=== PATIENT | female | born 1935 | race Caucasian/White ===

== ENCOUNTER → 2018-06-17 13:19 | Outpatient (CLI) | payer MEDICARE, BC, SELFPAY ==
--- NOTE | 2018-06-17 13:22 | DI.MRI.S_ITS ---
PROCEDURE: MR LUMBAR SPINE WO CON INDICATIONS: Low back pain. Left leg pain and weakness TECHNIQUE: Noncontrast sagittal T1 spin echo and T2 fast echo, sagittal STIR, axial T1 and T2 fast spin echo through the lumbar spine. In cases with scoliosis, additional coronal T2 fast spin echo may be performed. COMPARISON: None. FINDINGS: Image quality: Excellent. Alignment and Curvature: There is abnormal bony alignment with levoscoliosis measuring 21.0? centered at L2. Bone Marrow: Marrow is of normal overall signal. No acute vertebral body compression fractures. Spinal Cord: Conus medullaris terminates at the inferior L1 level. Visualized cord demonstrates normal signal and size. Paraspinous Soft Tissues: No paravertebral masses. L1-L2: Moderately severe degenerative disc disease with disc height reduction and desiccation. Facet osteoarthritis is mild, but associated with mild symmetric foraminal stenosis. This is slightly greater on the right than the left. Therefore there is mild right and minimal left foraminal stenosis, with potential for asymmetric impingement on the course of the right L1 nerve root L2-L3: Moderately severe degenerative disc disease, posterior broad-based transverse disc bulge slightly greater on the right than the left. This results in moderate right and mild left foraminal stenosis. No significant spinal stenosis is currently present. L3-L4: The degenerative changes at this level are moderately severe at the disc space and also at the facet joints, right greater than left. The foraminal stenosis appears moderate in severity and slightly greater on the left than the right, and there is foraminal stenosis to the degree that left greater than right mild L3 nerve root impingement would be expected. L4-L5: Moderately severe degenerative disc disease, severe facet osteoarthritis. The foraminal stenosis is greater on the left than the right with moderately severe left and moderate right foraminal stenosis and likelihood of asymmetric left-sided predominant L4 nerve root impingement. Mild spinal stenosis. L5-S1: Moderately severe to severe degenerative disc disease, facet osteoarthritis is severe and this allows anterolisthesis of L5 on S1, grade 1. Asymmetric severe left tendon near severe right foraminal stenosis appears present, and moderate concentric spinal stenosis is present slightly greater on the left than the right. IMPRESSION: Overall there is severe degenerative disc disease and facet osteoarthritis along the lumbosacral spine, with both convex leftward scoliosis and anterolisthesis of L5 on S1 present contributing to the degree of spinal and foraminal stenosis. A disc herniation is not found. Quite severe foraminal stenosis is present with likelihood of multilevel nerve root impingement as discussed in detail by level and the body of the report above. Dictated by: Sha Mederos M.D. on 06/17/2018 at 15:43 Approved by: Sha Mederos M.D. on 06/17/2018 at 15:52
--- NOTE | 2018-06-17 13:22 | DI.RAD.S_ITS ---
PROCEDURE: XR LUMBAR SPINE MIN 4V INDICATIONS: scolosis and R LE weakness TECHNIQUE: 5 views of the lumbar spine acquired. COMPARISON: [facility], , L-SPINE 2-3 VIEWS, 12/17/2014, 15:13. FINDINGS: Bones: 5 nonrib-bearing vertebrae are present. Moderate levoscoliosis centered at the L3 level. Multilevel grade one retrolisthesis. Grade 2 spondylolisthesis L5-S1 which has increased from prior exam. Moderate to severe multilevel disc degeneration. Moderate lower lumbar spine facet joint arthropathy. No vertebral body compression fractures. No suspicious bony lesions. Oblique views demonstrate no pars intra-articularis defects bilaterally. Soft tissues: Overlying bowel gas pattern is normal. No suspicious soft tissue calcifications. IMPRESSION: Multilevel degenerative change throughout the lumbar spine. No acute bony abnormality. Dictated by: Baldo Navarro [facility] Interpreted: Wendi Stout MD on 06/17/2018 at 13:48 Approved by: Wendi Stout MD, PhD on 06/17/2018 at 15:59
== END ==
PROVIDERS: PCP Physician Assistant; Visit Provider Physical Medicine & Rehabilitation
DX: M51.37 Other intervertebral disc degeneration, lumbosacral region (principal); M48.062 Spinal stenosis, lumbar region with neurogenic claudication; M47.817 Spondylosis without myelopathy or radiculopathy, lumbosacral region; M43.17 Spondylolisthesis, lumbosacral region; M41.50 Other secondary scoliosis, site unspecified; M54.5 Low back pain; M79.605 Pain in left leg; R53.1 Weakness
CPT/HCPCS: 72110; 72148

== ENCOUNTER 2018-08-19 13:50 | Outpatient (CLI) | payer MEDICARE, BC, SELFPAY ==
--- NOTE | 2018-08-19 13:52 | DI.RAD.S_ITS ---
PROCEDURE: PAIN L INTERLAMINAR/CAUDAL INJ INDICATIONS: SPINAL STENOSIS FINDINGS: Fluoroscopic spot filming was performed to verify placement of spinal needles at the L5-S1 level(s), as labeled on the films. Appropriate location(s) of the needle tip(s) was confirmed by injection of iodinated contrast. IMPRESSION: Fluoroscopy for pain management. Dictated by: Lexx Macdonald M.D. on 08/19/2018 at 16:28 Approved by: Lexx Macdonald M.D. on 08/19/2018 at 16:28
[2018-08-19 14:07] VITALS: BP 132/78; PULSE 75; RESP 16; TEMP 35.9; O2SAT 98
[2018-08-19 14:45] VITALS: BP 150/78; PULSE 78; RESP 18; O2SAT 98
[2018-08-19 14:50] VITALS: BP 144/90; PULSE 74; RESP 16; O2SAT 98
[2018-08-19 14:53] VITALS: BP 140/86; PULSE 73; RESP 18; O2SAT 96
[2018-08-19] MEDS: BUPIVACAINE 0.25% (PF) VIAL 2 ML INJ (14:53)
[2018-08-19] MEDS: IOPAMIDOL 15 ML VIAL 3 ML INJ (14:53)
[2018-08-19 14:54] VITALS: BP 146/80; PULSE 70; RESP 18; O2SAT 97
[2018-08-19] MEDS: methylPREDNISolone acetate 80 MG/ML VIAL INJ (14:54)
[2018-08-19] MEDS: DEXAMETHASONE 10 MG/ML VIAL 20 MG INJ (14:54)
[2018-08-19 15:02] VITALS: BP 130/74; PULSE 73; RESP 18; O2SAT 98
--- NOTE | 2018-08-19 15:27 | P.PCN_ITS ---
Procedures Date/Time Date of procedure: 08/19/18 Time of procedure: 15:24 General Procedure description: PROVIDER: Darshan Arroyo DO Operative Note PREOP DIAGNOSIS 1. HNP WITH RADICULAR FEATURES, 2. MULTILEVEL CENTRAL STENOSIS, POST OP DIAGNOSIS 1. HNP WITH RADICULAR FEATURES, 2. MULTILEVEL CENTRAL STENOSIS, PROCEDURES 1. FLUORSCOPICALLY GUIDED CONTRAST CONTROLLED INTERLAMINAR EPIDURAL STEROID INJECTION - L5/S1 PHYSICIAN: Darshan Arroyo DO INDICATIONS: Saira is referred by LYNETTE Andrade for treatment of Bilateral Foraminal Stenosis L >R LE symptoms. FINDINGS Multilevel Central Spinal Stenosis with Nerve Root Compression DESCRIPTION OF PROCEDURE Fluoroscopically guided, contrast-controlled L5/S1 translaminar epidural steroid injection. Following denial of allergy and review of potential side effects and complications, including, but not necessarily limited to, infection, allergic reaction, local tissue breakdown, temporary as well as permanent nerve injury, paralysis, stroke and possible , the patient indicated that the patient understood and agreed to proceed. An informed consent document was signed by the patient, witnessed by a nurse, and placed in the patient's chart. Additionally, other treatment options including modalities, medications, and physical therapy were reviewed with the patient. After review of previous anaesthesic history and IV conscious sedation the patient was deemed safe to proceed with todays procedure with IV conscious sedation as ASA class II designation. Safety time-out was performed to confirm patient ID, procedure to be performed and site of procedure. IV sedation was deemed unnecessary and thus was not administered by the RN after DO order, the patient remained responsive to all verbal commands. In the prone position, following sterile prep and drape of the lumbar region, the L5/S1 translaminar space was identified fluoroscopically. The skin was anesthetized via a 25-gauge, 1.5-inch needle with 1% lidocaine solution. At this point, a 22-gauge short bevel spinal needle was atraumatically introduced and advanced under fluoroscopic guidance into the region of the L5/S1 translaminar space. Depth was confirmed on lateral view. Radiological data, including multiple fluoroscopic views of the lumbar spine, reveal a spinal needle at the L5/S1 translaminar space. Lateral views then show placement of the needle in the epidural space. Subsequent views show contrast material flowing superiorly and inferiorly in the epidural space. No vascular or intrathecal uptake is observed. At this point, using loss of resistance technique with saline and air, the epidural space was entered. This was confirmed following negative aspiration with injection of approximately 1.5 cc of Isovue 200, showing excellent epidural flow without vascular or intrathecal uptake. At this point, 1 cc of 1 % lidocaine solution combined with 3 cc or 20 mg of dexamethasone and 80mg Depo medrol was injected without incident. The patent tolerated the procedure without signs of symptoms of complications prior to transfer to the recovery area for further monitoring. The patient was then transferred to the recovery area where they were observed for an appropriate period of time after the injection. The patient reported a VAS score of 6 prior to the procedure and a post-procedure VAS of 0. Total Fluoroscopy Time: 11.8 seconds Total Conscious Sedation Time: 24min POST OP INSTRUCTIONS The patient was provided a Pain Log to continue to record their response to the target-specific procedure prior to follow-up visit with their referring physician. Additionally, specific post-injection care instructions and a contact number to our office were provided if concerns arise regarding possible complications associated with the procedure are suspected. Darshan Arroyo DO Complications: none
== END 2018-08-19 15:24 ==
LOC: RAD 13:51
PROVIDERS: PCP Physician Assistant; Visit Provider Physical Medicine & Rehabilitation
DX: M51.17 Intervertebral disc disorders with radiculopathy, lumbosacral region (principal); M48.062 Spinal stenosis, lumbar region with neurogenic claudication
CPT/HCPCS: 62323; J1040; J1100; J2250

== ENCOUNTER → 2019-02-25 13:04 | Outpatient (CLI) | payer MEDICARE, BC, SELFPAY ==
--- NOTE | 2019-02-25 | DI.MG.S_ITS ---
BILATERAL DIGITAL DIAGNOSTIC MAMMOGRAM 3D/2D: 02/25/2019 CLINICAL: Rash on breasts. Patient reports a history of an upper inner left breast rash with itchiness beginning approximately 2 months ago. She had a clinical breast exam approximately 6 weeks ago and was placed on steroid cream, which the patient reports helped. The itchiness and rash have reportedly largely resolved, although the patient reports skin feels slightly itchy, occasionaly at night and skin feel rougher.. Comparison is made to exams dated: 03/26/2018 mammogram, 03/07/2017 mammogram, and 08/11/2015 mammogram - [facility]. There are scattered fibroglandular elements in both breasts. There are bilateral circular mole markers. There are stable bilateral breast calcifications. No underlying mass or abnormality to correlate with patient's reported focal left breast skin symptoms. No significant masses, calcifications, or other findings are seen in either breast. IMPRESSION: INCOMPLETE: NEEDS ADDITIONAL IMAGING EVALUATION No underlying mass or abnormality to correlate with patient's reported focal left breast skin symptoms of the upper inner left breast. A targeted ultrasound is recommended and will be performed immediately following this exam. This exam was interpreted at Station ID: [id number]. NOTE: For mammograms, a report in lay terms will be sent to the patient. Approximately 15% of breast malignancies will not be visualized mammographically. In the management of a palpable breast mass, a negative mammogram must not discourage biopsy of a clinically suspicious lesion. Electronically Signed By: Chris Patel M.D. ecl/:02/25/2019 13:55:40 ACR BI-RADS Category 0: Incomplete [id number]
--- NOTE | 2019-02-25 | DI.US.S_ITS ---
LIMITED ULTRASOUND OF LEFT BREAST: 02/25/2019 CLINICAL: Rash on breasts. Patient reports a history of an upper inner left breast rash with itchiness beginning approximately 2 months ago. She had a clinical breast exam approximately 6 weeks ago and was placed on steroid cream, which the patient reports helped. The itchiness and rash have reportedly largely resolved, although the patient reports skin feels slightly itchy, occasionaly at night and skin feel rougher.. Comparison is made to exams dated: 02/25/2019 mammogram - [facility], 03/26/2018 mammogram, 03/07/2017 mammogram, and 08/11/2015 mammogram - [facility]. Real-time and Doppler ultrasound of the left breast upper inner quadrant and retroareolar regions were performed. Navarro scale images of the real-time examination were reviewed. Targeted ultrasound was performed of the retroareolar and upper inner left breast, including the region of the patient's reported focal skin abnormality located at 11-12 o'clock position 12 cm from the nipple. No underlying breast mass or abnormality is identified. No underlying skin mass or abnormality is identified. IMPRESSION: NEGATIVE 1) No ultrasound findings to explain patient's reported focal skin symptoms (rash and pruritis) of the upper inner left breast. Recommend clinical follow-up for further evaluation and management of the patient's reported symptoms. 2) There is no sonographic evidence of malignancy in the imaged left breast. Return to annual screening mammography is recommended. The patient is advised to monitor her breasts and to return sooner for re-evaluation should she feel anything grow or change. This exam was interpreted at Station ID: [id number]. Electronically Signed By: Chris Patel M.D. ecl/:02/25/2019 14:25:45 letter sent: Clinical Evaluation Ultrasound BI-RADS: 1 Negative
== END ==
PROVIDERS: PCP Internal Medicine; Visit Provider Internal Medicine
DX: R92.8 Other abnormal and inconclusive findings on diagnostic imaging of breast (principal); R92.1 Mammographic calcification found on diagnostic imaging of breast; L29.8 Other pruritus
CPT/HCPCS: 76642; 77066; G0279

== ENCOUNTER → 2019-02-27 08:58 | Outpatient (CLI) | payer MEDICARE, BC, SELFPAY ==
--- NOTE | 2019-02-27 09:00 | DI.US.S_ITS ---
PROCEDURE: US PERIPH VENOUS LOW EXTREM LT INDICATIONS: EVALUATE LEFT LOWER EXTREMITY, POSSIBLE DEEP VEIN THROMBOSIS TECHNIQUE: Real-time imaging, as well as color and pulse Doppler interrogation, were performed of the lower extremity deep veins from the inguinal ligament to the popliteal fossa. COMPARISON: None. FINDINGS: The common femoral, femoral and popliteal veins are normally compressible, and free of intraluminal thrombus. Color and pulse Doppler demonstrate normal phasic intraluminal flow. There is normal augmentation response to distal compression maneuver. IMPRESSION: No DVT found left lower extremity. Dictated by: Sha Mederos M.D. on 02/27/2019 at 9:41 Approved by: Sha Mederos M.D. on 02/27/2019 at 9:41
== END ==
PROVIDERS: PCP Internal Medicine; Visit Provider Physical Medicine & Rehabilitation
DX: R09.89 Other specified symptoms and signs involving the circulatory and respiratory systems (principal)
CPT/HCPCS: 93971

== ENCOUNTER 2019-03-31 10:09 | Outpatient (CLI) | payer MEDICARE, BC, SELFPAY ==
[2019-03-31] VITALS (9 sets, daily range): BP systolic 132–145; BP diastolic 70–101; PULSE 67–77; RESP 16–18; TEMP 36.2; O2SAT 96–100
--- NOTE | 2019-03-31 10:14 | DI.RAD.S_ITS ---
PROCEDURE: PAIN L/S TRANSFORAMINAL INJECT INDICATIONS: SPINAL STENOSIS FINDINGS: Fluoroscopic spot filming was performed to verify placement of spinal needles at the L4-L5 level(s), as labeled on the films. Appropriate location(s) of the needle tip(s) was confirmed by injection of iodinated contrast. Dictated by: Srini Stephenson M.D. on 03/31/2019 at 12:19 Approved by: Srini Stephenson M.D. on 03/31/2019 at 12:20
[2019-03-31] MEDS: MIDAZOLAM 5 MG/5 ML VIAL IV (11:29)
[2019-03-31] MEDS: IOPAMIDOL 15 ML VIAL 3 ML INJ (11:37)
[2019-03-31] MEDS: BETAMETHASONE 30 MG/5 ML MDV 6 MG INJ (11:37)
[2019-03-31] MEDS: DEXAMETHASONE 10 MG/ML VIAL 20 MG INJ (11:37)
[2019-03-31] MEDS: BUPIVACAINE 0.25% (PF) VIAL 2 ML INJ (11:37)
--- NOTE | 2019-03-31 11:43 | PC.NURSE ---
ASSISTING PT OFF TABLE AND TRANSPORTING TO POST PROC AREA IN STABLE CONDITION
--- NOTE | 2019-03-31 11:48 | P.PCN_ITS ---
Procedures Date/Time Date of procedure: 03/31/19 Time of procedure: 11:48 General Procedure description: PREOP DIAGNOSIS 1. FORMAINAL STENOSIS WITH LE SYMPTOMS POST OP DIAGNOSIS 1. FORMAINAL STENOSIS WITH LE SYMPTOMS PROCEDURES 1. FLUOROSCOPICALLY GUIDED CONTRAST CONTROLLED TRANSFORAMINAL EPIDURAL STEROID INJECTION - LEFT L4/5 PHYSICIAN: Darshan Arroyo DO INDICATIONS: Saira is referred by for treatment of Foraminal Stenosis with Left LE Symptoms FINDINGS Foraminal Nerve Root Compression secondary to disc disease and facet hypertrophy DESCRIPTION OF PROCEDURE: Following denial of allergy and review of potential side effects and complications, including, but not necessarily limited to, infection, allergic reaction, local tissue breakdown, stroke, temporary or permanent nerve injury, paralysis, and possible , the patient indicated that the patient understood and agreed to proceed. An informed consent document was signed by the patient, witnessed by a nurse, and placed in the patient's chart. Additionally, other treatment options including medications, modalities, and physical therapy were reviewed with the patient. After review of previous anaesthesic history and IV conscious sedation the patient was deemed safe to proceed with todays procedure with IV conscious sedation as ASA class II designation. Safety time-out was performed to confirm patient ID, procedure to be performed and site of procedure. IV sedation was accomplished with a combination of 2mg of Versed administered by the RN after DO order, titrated to patient comfort during the course of the procedure while the patient remained responsive to all verbal commands In the prone position following sterile prep and drape of the lumbar region, the left L4/5 posterior neuroforamen was identified fluoroscopically. The skin was anesthetized via a 25-gauge 1.5-inch needle with 1% lidocaine solution. At this point, a 25-gauge 3.5-inch spinal needle was atraumatically introduced and advanced under fluoroscopic guidance through the posterior left L4/5 neuroforamen to approximately the anterior aspect of the canal. Depth was confirmed on lateral view. Following negative aspiration, injection of approximately 1.5cc of Isovue 200 under live fluoroscopy in the AP view confirmed excellent flow along the nerve root, into the epidural space without vascular or intrathecal uptake observed Radiological data, including multiple fluoroscopic views of the lumbosacral spine, reveal a spinal needle at the left L4/5 posterior neuroforamen. Subsequent views show flow of contrast material flowing superiorly and inferiorly along the nerve root confirming epidural flow. Subsequently, a test dose of 1.5cc of 1% lidocaine solution was administered and patient was observed for two minutes for signs or symptoms of complications, including abdominal pain, shortness of breath, bilateral upper or lower extremity weakness, nausea and vomiting, prior to steroid injection. At this point, a total of 3cc or 20mg of dexamethasone and 6mg of betamethasone was injected without incident. The procedure tolerated the procedure well without signs or symptoms of complications prior to transfer to the recovery area continued monitoring without incident. The patient was then transferred to the recovery area where they were observed for an appropriate time after the injection. The patient reported a VAS score of 7 prior to the procedure and a post- procedure VAS of 0. Total Fluoroscopy Time: 20.9 seconds Total Conscious Sedation Time: 24min POST OP INSTRUCTIONS The patient was provided a Pain Log to continue to record their response to the target-specific procedure prior to follow-up visit with their referring physician. Additionally, specific post-injection care instructions and a contact number to our office were provided if concerns arise regarding possible complications associated with the procedure are suspected. Darshan Arroyo DO Complications: none
--- NOTE | 2019-03-31 12:15 | PC.NURSE ---
Pt returned from post procedure via wheelchair, awake and alert, able to move from w/c to chair with standby assist. Resumed monitoring from Dianna TINEO.
== END 2019-03-31 12:38 ==
LOC: RAD 10:11
PROVIDERS: PCP Internal Medicine; Visit Provider Physical Medicine & Rehabilitation
DX: M48.062 Spinal stenosis, lumbar region with neurogenic claudication (principal); M51.16 Intervertebral disc disorders with radiculopathy, lumbar region
CPT/HCPCS: 64483; 99152; J0702; J1100; J2250; J3010

== ENCOUNTER → 2021-02-20 14:25 | Outpatient (CLI) | payer MEDICARE, BC, SELFPAY ==
--- NOTE | 2021-02-20 | DI.RAD.S_ITS ---
PROCEDURE: XR KNEE LT 1TO2V INDICATIONS: KNEE PAIN TECHNIQUE: 2 view(s) of the knee acquired. COMPARISON: [facility], , KNEE 1-2 VIEWS RIGHT, 03/05/2011, 10:00. FINDINGS: Bones: Patient is status post knee joint arthroplasty. Hardware components are in expected positions. No gross hardware loosening or failure. Alignment of left knee is anatomic. Visualized bony structures are intact. Soft tissues: Overlying postoperative changes are noted. IMPRESSION: Anatomic left knee alignment. No fracture or dislocation. No gross hardware complication. No significant joint effusion. Dictated by: Blake Rome M.D. on 02/20/2021 at 16:07 Approved by: Blake Rome M.D. on 02/20/2021 at 16:08
--- NOTE | 2021-02-20 | DI.RAD.S_ITS ---
PROCEDURE: XR ANKLE LT MIN 3V INDICATIONS: ANKLE PAIN TECHNIQUE: 3 views of the ankle were acquired. COMPARISON: None. FINDINGS: Bones: No fractures or dislocations. Ankle mortise is normally aligned. Osteoarthritic changes are seen in tibiotalar joint, subtalar joint, talonavicular joint and navicular cuneiform joints. No suspicious bony lesions. Soft tissues: Ankle soft tissue swelling is seen. No tibiotalar joint effusion. Achilles tendon appears normal. IMPRESSION: Mild ankle soft tissue swelling. No ankle fracture or dislocation. Osteoarthritic changes are noted in ankle and hindfoot joints. Dictated by: Blake Rome M.D. on 02/20/2021 at 15:56 Approved by: Blake Rome M.D. on 02/20/2021 at 15:57
== END ==
PROVIDERS: PCP Internal Medicine; Referring Provider Student in an Organized Health Care Education/Training Program; Visit Provider Student in an Organized Health Care Education/Training Program
DX: M25.562 Pain in left knee (principal); M25.572 Pain in left ankle and joints of left foot; M25.472 Effusion, left ankle
CPT/HCPCS: 73560; 73610

== ENCOUNTER → 2021-03-01 09:53 | Outpatient (CLI) | payer MEDICARE, BC, SELFPAY ==
--- NOTE | 2021-03-01 09:55 | DI.RAD.S_ITS ---
PROCEDURE: XR LUMBAR SPINE MIN 4V INDICATIONS: back pain TECHNIQUE: 5 views of the lumbar spine were acquired, including bilateral oblique views. COMPARISON: [facility], CR, XR LUMBAR SPINE MIN 4V, 06/17/2018, 13:27. FINDINGS: Bones: 5 nonrib-bearing vertebrae are present. There is approximately 20? of convex left lumbar spine scoliosis which is stable compared to the prior exam. There is mild L3-L4 retrolisthesis which is stable compared to the prior exam. There is mild L5-S1 anterolisthesis which is stable compared to prior examination. There is trace L2-L3 retrolisthesis which i has developed in the interval since the prior exam. No vertebral body compression fractures. No suspicious bony lesions. Severe L1-L2, L2-L3 and L3-L4 degenerative disc disease. Moderate L4-L5 and L5-S1 degenerative disc disease. Severe L2-L3, L3-L4, L4-L5 and L5-S1 facet arthropathy. Soft tissues: Overlying bowel gas pattern is normal. No suspicious soft tissue calcifications. Oblique images: No pars defects. IMPRESSION: 1. Convex left scoliosis. 2. Grade 1 L3-L4 and L5-S1 degenerative spondylolisthesis. 3. Multilevel degenerative disc disease. 4. Multilevel facet arthropathy. 5. No fracture. No acute osseous lesion. If symptoms and/or clinical suspicion for pathology persists, evaluation with MRI should be considered for further assessment. Dictated by: Wendi Stout MD, PhD on 03/01/2021 at 17:04 Approved by: Wendi Stout MD, PhD on 03/01/2021 at 17:07
== END ==
PROVIDERS: PCP Internal Medicine; Referring Provider Physical Medicine & Rehabilitation; Visit Provider Physical Medicine & Rehabilitation
DX: M43.17 Spondylolisthesis, lumbosacral region (principal); M43.16 Spondylolisthesis, lumbar region; M48.062 Spinal stenosis, lumbar region with neurogenic claudication; M51.36 Other intervertebral disc degeneration, lumbar region; M47.816 Spondylosis without myelopathy or radiculopathy, lumbar region; M47.817 Spondylosis without myelopathy or radiculopathy, lumbosacral region; M41.86 Other forms of scoliosis, lumbar region
CPT/HCPCS: 72110; 99214

== ENCOUNTER → 2021-03-08 11:50 | Outpatient (CLI) | payer MEDICARE, BC, SELFPAY | PROVIDERS: PCP Internal Medicine; Referring Provider Specialist; Visit Provider Specialist | DX: R30.0 Dysuria (principal) | CPT/HCPCS: 87077; 87086; 87186 ==

== ENCOUNTER → 2021-03-27 12:49 | Outpatient (CLI) | payer MEDICARE, BC, SELFPAY ==
[2021-03-27 15:31] LABS: COVID19 -Nasal RAPID Negative (Negative)
== END ==
PROVIDERS: PCP Internal Medicine; Visit Provider Physical Medicine & Rehabilitation
DX: Z20.822 Contact with and (suspected) exposure to COVID-19 (principal)
CPT/HCPCS: 87635; C9803

== ENCOUNTER 2021-03-28 09:50 | Outpatient (CLI) | payer MEDICARE, BC, SELFPAY ==
[2021-03-28] VITALS (9 sets, daily range): BP systolic 114–137; BP diastolic 54–70; PULSE 69–79; RESP 16–21; TEMP 36.1; O2SAT 94–99
--- NOTE | 2021-03-28 09:54 | DI.RAD.S_ITS ---
PROCEDURE: PAIN L INTERLAMINAR/CAUDAL INJ INDICATIONS: SPONDYLOSIS COMPARISON: [facility], XA, PAIN L INTERLAMINAR/CAUDAL INJ, 08/19/2018, 14:47. FINDINGS: Fluoroscopic spot filming was performed to verify placement of a spinal needle at the L5-S1 level, as labeled on the films. Appropriate location of the needle tip was confirmed by injection of iodinated contrast. IMPRESSION: No significant intraprocedural abnormality. Dictated by: Fercho Bonilla M.D. on 03/28/2021 at 12:48 Approved by: Fercho Bonilla M.D. on 03/28/2021 at 12:48
[2021-03-28] MEDS: MIDAZOLAM 5 MG/5 ML VIAL IV (11:04)
[2021-03-28] MEDS: BUPIVACAINE 0.25% (PF) VIAL 2 ML INJ (11:09)
[2021-03-28] MEDS: BETAMETHASONE 30 MG/5 ML MDV 6 MG INJ (11:09)
[2021-03-28] MEDS: IOPAMIDOL 15 ML VIAL 3 ML INJ (11:09)
[2021-03-28] MEDS: DEXAMETHASONE 10 MG/ML VIAL 20 MG INJ (11:09)
--- NOTE | 2021-03-28 11:24 | P.PCN_ITS ---
Date/Time/Diagnoses Date of procedure: 03/28/21 Time of procedure: 11:24 Pre-procedure diagnosis: 1. HNP WITH RADICULAR FEATURES, 2. MULTILEVEL CENTRAL STENOSIS, Post-procedure diagnosis: same Procedure Notes Procedure: 1. FLUOROSCOPICALLY GUIDED CONTRAST CONTROLLED INTERLAMINAR EPIDURAL STEROID INJECTION - L5/S1 Indications: Saira is referred by Dr. Nunez for treatment of Bilateral Foraminal Stenosis L>R LE symptoms. Physician: Darshan Arroyo Total Fluoroscopy time (seconds): 4 Total sedation minutes: 11 Complications: none Procedure in detail & Post-procedure care: FINDINGS Multilevel Central Spinal Stenosis with Nerve Root Compression DESCRIPTION OF PROCEDURE Fluoroscopically guided, contrast-controlled L5/S1 translaminar epidural steroid injection. Following review of allergy and review of potential side effects and complications, including, but not necessarily limited to, infection, allergic reaction, local tissue breakdown, temporary as well as permanent nerve injury, paralysis, stroke and possible , the patient indicated that the patient understood and agreed to proceed. An informed consent document was signed by the patient, witnessed by a nurse, and placed in the patient's chart. Additionally, other treatment options including modalities, medications, and physical therapy were reviewed with the patient. After review of previous anaesthesic history and IV conscious sedation the patient was deemed safe to proceed with today?s procedure with IV conscious sedation as ASA class II designation. Safety time-out was performed to confirm patient ID, procedure to be performed and site of procedure. IV sedation was accomplished with a combination of 2mg of Versed administered by the RN after DO order, titrated to patient comfort during the course of the procedure while the patient remained responsive to all verbal commands. In the prone position, following sterile prep and drape of the lumbar region, the L5/S1 translaminar space was identified fluoroscopically. The skin was anesthetized via a 25-gauge, 1.5-inch needle with 1% lidocaine solution. At this point, a 22-gauge short bevel spinal needle was atraumatically introduced a nd advanced under fluoroscopic guidance into the region of the L5/S1 translaminar space. Depth was confirmed on lateral view. Radiological data, including multiple fluoroscopic views of the lumbar spine, reveal a spinal needle at the L5/S1 translaminar space. Lateral views then show placement of the needle in the epidural space. Subsequent views show contrast material flowing superiorly and inferiorly in the epidural space. No vascular or intrathecal uptake is observed. At this point, using loss of resistance technique with saline and air, the epidural space was entered. This was confirmed following negative aspiration with injection of approximately 1.5cc of Isovue 200, showing excellent epidural flow without vascular or intrathecal uptake. At this point, 1cc of 1% lidocaine solution combined with 3cc or 20mg of dexamethasone and 6mg of betamethasone was injected without incident. The patent tolerated the procedure without signs of symptoms of complications prior to transfer to the recovery area for further monitoring. The patient was then transferred to the recovery area where they were observed for an appropriate period of time after the injection. The patient reported a VAS score of 6 prior to the procedure and a post-procedure VAS of 0. POST OP INSTRUCTIONS The patient was provided a Pain Log to continue to record their response to the target-specific procedure prior to follow-up visit with their referring physician. Additionally, specific post-injection care instructions and a contact number to our office were provided if concerns arise regarding possible complications associated with the procedure are suspected.
== END 2021-03-28 11:39 | disposition home or self-care (01) ==
LOC: RAD 09:53
PROVIDERS: PCP Internal Medicine; Referring Provider Physical Medicine & Rehabilitation; Visit Provider Physical Medicine & Rehabilitation
DX: M48.062 Spinal stenosis, lumbar region with neurogenic claudication (principal); M51.17 Intervertebral disc disorders with radiculopathy, lumbosacral region; M48.07 Spinal stenosis, lumbosacral region
CPT/HCPCS: 62323; 99152; J0702; J1100; J2250; J3010

== ENCOUNTER → 2021-08-01 08:16 | Outpatient (CLI) | payer MEDICARE, BC, SELFPAY ==
[2021-08-01 13:02] LABS: COVID19 -Nasal RAPID Negative (Negative)
== END ==
PROVIDERS: PCP Internal Medicine; Visit Provider Physical Medicine & Rehabilitation
DX: Z20.822 Contact with and (suspected) exposure to COVID-19 (principal)
CPT/HCPCS: 87635; C9803

== ENCOUNTER 2021-08-03 08:26 | Outpatient (CLI) | payer MEDICARE, BC, SELFPAY ==
[2021-08-03] VITALS (8 sets, daily range): BP systolic 117–135; BP diastolic 55–74; PULSE 70–81; RESP 8–26; TEMP 36.8; O2SAT 95–98
--- NOTE | 2021-08-03 08:31 | DI.RAD.S_ITS ---
PROCEDURE: PAIN L INTERLAMINAR/CAUDAL INJ INDICATIONS: SPONDYLOSIS COMPARISON: [facility], XA, PAIN L INTERLAMINAR/CAUDAL INJ, 03/28/2021, 11:10. [facility], CR, XR LUMBAR SPINE MIN 4V, 03/01/2021, 9:59. FINDINGS: Fluoroscopic spot filming was performed to verify placement of a spinal needle at the L5-S1 level, as labeled on the films. Appropriate location of the needle tip was confirmed by injection of iodinated contrast. IMPRESSION: No significant intraprocedural abnormality. Dictated by: Fercho Bonilla M.D. on 08/03/2021 at 9:39 Approved by: Fercho Bonilla M.D. on 08/03/2021 at 9:40
[2021-08-03] MEDS: MIDAZOLAM 5 MG/5 ML VIAL IV (09:33)
[2021-08-03] MEDS: IOPAMIDOL 15 ML VIAL 3 ML INJ (09:36)
[2021-08-03] MEDS: BUPIVACAINE 0.25% (PF) VIAL 2 ML INJ (09:36)
[2021-08-03] MEDS: BETAMETHASONE 30 MG/5 ML MDV 12 MG INJ (09:37)
[2021-08-03] MEDS: DEXAMETHASONE 10 MG/ML VIAL 20 MG INJ (09:37)
--- NOTE | 2021-08-03 09:45 | PM.PROC.IR.1 ---
Date/Time/Diagnoses Date of procedure: 08/03/21 Time of procedure: 09:45 Pre-procedure diagnosis: 1. HNP WITH RADICULAR FEATURES, 2. MULTILEVEL CENTRAL STENOSIS, Post-procedure diagnosis: same Procedure Notes Procedure: 1. FLUOROSCOPICALLY GUIDED CONTRAST CONTROLLED INTERLAMINAR EPIDURAL STEROID INJECTION - L5/S1 Indications: Saira is referred by Dr. Nunez for treatment of Bilateral Foraminal Stenosis L>R LE symptoms. Physician: Darshan Arroyo Total Fluoroscopy time (seconds): 7 Total sedation minutes: 7 Complications: none Procedure in detail & Post-procedure care: FINDINGS Multilevel Central Spinal Stenosis with Nerve Root Compression DESCRIPTION OF PROCEDURE Fluoroscopically guided, contrast-controlled L5/S1 translaminar epidural steroid injection. Following review of allergy and review of potential side effects and complications, including, but not necessarily limited to, infection, allergic reaction, local tissue breakdown, temporary as well as permanent nerve injury, paralysis, stroke and possible , the patient indicated that the patient understood and agreed to proceed. An informed consent document was signed by the patient, witnessed by a nurse, and placed in the patient's chart. Additionally, other treatment options including modalities, medications, and physical therapy were reviewed with the patient. After review of previous anaesthesic history and IV conscious sedation the patient was deemed safe to proceed with today?s procedure with IV conscious sedation as ASA class II designation. Safety time-out was performed to confirm patient ID, procedure to be performed and site of procedure. IV sedation was accomplished with a combination of 2mg of Versed administered by the RN after DO order, titrated to patient comfort during the course of the procedure while the patient remained responsive to all verbal commands. In the prone position, following sterile prep and drape of the lumbar region, the L5/S1 translaminar space was identified fluoroscopically. The skin was anesthetized via a 25-gauge, 1.5-inch needle with 1% lidocaine solution. At this point, a 22-gauge short bevel spinal needle was atraumatically introduced and advanced under fluoroscopic guidance into the region of the L5/S1 translaminar space. Depth was confirmed on lateral view. Radiological data, including multiple fluoroscopic views of the lumbar spine, reveal a spinal needle at the L5/S1 translaminar space. Lateral views then show placement of the needle in the epidural space. Subsequent views show contrast material flowing superiorly and inferiorly in the epidural space. No vascular or intrathecal uptake is observed. At this point, using loss of resistance technique with saline and air, the epidural space was entered. This was confirmed following negative aspiration with injection of approximately 1.5cc of Isovue 200, showing excellent epidural flow without vascular or intrathecal uptake. At this point, 1 cc of 1% lidocaine solution combined with 3cc or 20mg of dexamethasone and 6mg of betamethasone was injected without incident. The patent tolerated the procedure without signs of symptoms of complications prior to transfer to the recovery area for further monitoring. The patient was then transferred to the recovery area where they were observed for an appropriate period of time after the injection. The patient reported a VAS score of 6 prior to the procedure and a post-procedure VAS of 0. POST OP INSTRUCTIONS The patient was provided a Pain Log to continue to record their response to the target-specific procedure prior to follow-up visit with their referring physician. Additionally, specific post-injection care instructions and a contact number to our office were provided if concerns arise regarding possible complications associated with the procedure are suspected.
--- NOTE | 2021-08-03 13:24 | PC.NURSE ---
1210- patient is steady on her feet. Able to takes steps feels like both legs are strong and intact. Assisted to bathroom without difficulty, dose use cane at home. Son picked her up and instructed to assist her into house. Patient has no questions or concerns at time of d/c.
== END 2021-08-03 12:16 | disposition home or self-care (01) ==
PROVIDERS: PCP Internal Medicine; Referring Provider Physical Medicine & Rehabilitation; Visit Provider Physical Medicine & Rehabilitation
DX: M48.07 Spinal stenosis, lumbosacral region; M51.17 Intervertebral disc disorders with radiculopathy, lumbosacral region
CPT/HCPCS: 62323; J0702; J1100; J2250; J3010

== ENCOUNTER → 2022-06-11 10:52 | Outpatient (CLI) | payer MEDICARE, BC, SELFPAY | PROVIDERS: PCP Internal Medicine; Visit Provider Obstetrics & Gynecology | DX: N39.0 Urinary tract infection, site not specified (principal) | CPT/HCPCS: 87086 ==

== ENCOUNTER → 2022-07-03 13:39 | Outpatient (CLI) | payer MEDICARE, BC, SELFPAY ==
--- NOTE | 2022-07-03 | DI.MRI.S_ITS ---
PROCEDURE: MR LUMBAR SPINE WO CON INDICATIONS: Radiculopathy, lumbar region TECHNIQUE: Noncontrast sagittal T1 spin echo and T2 fast echo, sagittal STIR, and T2 fast spin echo through the lumbar spine. In cases with scoliosis, additional coronal T2 fast spin echo may be performed. COMPARISON: Located [facility], CR, XR LUMBAR SPINE MIN 4V, 03/01/2021, 9:59. Located [facility], XA, PAIN L INTERLAMINAR/CAUDAL INJ, 03/28/2021, 11:10. Located Within [facility], MR, MR LUMBAR SPINE WO CON, 06/17/2018, 14:20. FINDINGS: Image quality: This examination is limited by involuntary motion artifact. Alignment and Curvature: [id number] levoconvex lumbar scoliosis is seen. Grade 1 L5-S1 anterolisthesis is seen. Associated bilateral pars defects are not definitely seen at L5. Mild retrolisthesis can be seen at L2-L3 and L3-L4. Bone Marrow: Marrow is of normal overall signal. No acute vertebral body compression fractures. Spinal Cord: Conus medullaris terminates at the L1 level. Visualized cord demonstrates normal signal and size. Paraspinous Soft Tissues: No paravertebral masses. T12-L1: Moderate loss of disc height is seen. Loss of disc signal is seen. Mild to moderate disc bulge is seen, with a central disc protrusion. No significant neural foraminal narrowing can be seen. Moderate central canal narrowing is seen, with associated mild mass effect upon the conus medullaris. When comparison is made with the prior images, these findings are similar. L1-L2: Moderate to severe loss of disc height and disc signal can be seen. Reactive marrow endplate changes are seen, which are hyperintense on T1-weighted and T2-weighted imaging and most consistent with fatty metaplasia (Modic type II changes). At least moderate disc bulge is seen, which is eccentric to the left. There is a superimposed central disc protrusion. Moderate facet joint hypertrophy is seen. There is moderate to severe left-sided and moderate right-sided neural foraminal narrowing. Moderate central canal narrowing is seen. There is mild progression compared to 2018. L2-L3: Moderate to severe loss of disc height and disc signal can be seen on the right side. Bridging endplate osteophytes are seen on the right side, as on series 4, image 4. At least moderate disc bulge is seen, which is eccentric to the right. Macrometastasis set there is moderate to severe right-sided neural foraminal narrowing, with a degree of compression upon the exiting right L2 nerve root. Moderate left-sided neural foraminal narrowing is seen. Moderate central canal narrowing is seen. When comparison is made with the prior images, these findings are similar. L3-L4: Moderate to severe loss of disc height and disc signal can be seen on the right side. Bridging endplate osteophytes can be seen, as on series 4, image 4. At least moderate facet hypertrophy can be seen, right worse than left. There is moderate to severe right-sided and at least moderate left-sided neural foraminal narrowing. There is a degree of compression seen upon the exiting nerve roots. These degenerative changes are mildly progressed compared to 2018. L4-L5: Mild loss of disc height is seen. Loss of disc signal is seen. At least moderate disc bulge is seen, which is eccentric to the right. Moderate to prominent facet hypertrophy is seen. Associated hypertrophy of the ligamentum flavum can be seen. There is moderate to severe left-sided and at least moderate right-sided neural foraminal narrowing. At least moderate central canal narrowing is seen, as on series 6, image 25. There is slight progression of degenerative change compared to the prior MRI. L5-S1: Moderate to severe loss of disc height and disc signal can be seen. At least moderate disc bulge is seen. There is a central disc protrusion/disc uncovering. Prominent facet hypertrophy can be seen at this level. There is moderate to severe bilateral neural foraminal narrowing seen, with an associated a degree of compression seen upon the exiting nerve roots. Moderate central canal narrowing is seen. When comparison is made with the prior images, these findings are similar. 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 Mild to moderate levoconvex scoliotic curvature is noted. Dictated by: Fercho Bonilla M.D. on 07/03/2022 at 16:11 Approved by: Fercho Bonilla M.D. on 07/03/2022 at 16:18
== END ==
PROVIDERS: PCP Internal Medicine; Referring Provider Physician Assistant; Visit Provider Physician Assistant
DX: M47.26 Other spondylosis with radiculopathy, lumbar region (principal); M47.27 Other spondylosis with radiculopathy, lumbosacral region; M41.86 Other forms of scoliosis, lumbar region
CPT/HCPCS: 72148

== ENCOUNTER → 2022-07-25 11:28 | Outpatient (CLI) | payer MEDICARE, BC, SELFPAY ==
[2022-07-25 12:09] LABS: Hematocrit 40.5 % (36-46); Hemoglobin 13.7 g/dL (12.0-16.0); Mean Corpuscular HGB Conc 33.7 % (30-36); Mean Corpuscular Hemoglobin 30.3 PG (26-34); Mean Corpuscular Volume 89.9 fL (80-100); Platelet Count 273 X10^3/uL (150-400); Red Blood Cell Count 4.51 X10^6/uL (4.0-5.2); Red Cell Distribution Width 13.8 % (11.6-14.8); White Blood Cell Count 6.5 X10^3/uL (4.5-11.0)
[2022-07-25 12:25] LABS: Alanine Aminotransferase 16 IU/L (<35); Albumin 4.1 g/dL (3.5-5.0); Albumin Globulin Ratio 1.4 (1.0-2.8); Alkaline Phosphatase 59 U/L (38-126); Aspartate Aminotransferase 25 IU/L (14-36); BUN Creatinine Ratio 26.7 (6-22); Bilirubin Total 0.5 mg/dL (0.2-1.3); Blood Urea Nitrogen 20 mg/dL (7-17); Calcium 8.8 mg/dL (8.4-10.2); Carbon Dioxide 31 mmol/L (22-32); Chloride 102 mmol/L (98-107); Cholesterol 206 mg/dL (140-199); Estimated Glomerular Filt Rate > 60 mL/min (>60); Glucose 90 mg/dL (80-110); HDL Cholesterol 57 mg/dL (40-60); HEMOLYSIS < 15 (0-50); LDL Cholesterol Calculated 126 mg/dL (<100); Potassium 4.1 mmol/L (3.4-5.1); Sodium 138 mmol/L (137-145); Total Protein 7.1 g/dL (6.3-8.2); Triglycerides 115 mg/dL (35-150)
[2022-07-25 13:39] LABS: TSH w/ Reflex to FT4 2.36 uIU/mL (0.47-4.68)
== END ==
PROVIDERS: PCP Internal Medicine; Referring Provider Internal Medicine; Visit Provider Internal Medicine
DX: E78.2 Mixed hyperlipidemia (principal); G89.29 Other chronic pain; M54.41 Lumbago with sciatica, right side; M54.42 Lumbago with sciatica, left side; Z85.828 Personal history of other malignant neoplasm of skin
CPT/HCPCS: 36415; 80053; 80061; 84443; 85027

== ENCOUNTER → 2022-09-26 12:05 | Outpatient (CLI) | payer MEDICARE, BC, SELFPAY ==
--- NOTE | 2022-09-26 12:20 | DI.RAD.S_ITS ---
PROCEDURE: XR DEXA AXIAL SKELETON INDICATIONS: Screening for osteoporosis COMPARISON: None. FINDINGS: This blank DEXA report has been sent in error by the PACS system. The correct and complete report will be forthcoming in 1-2 days. Thank you for your patience and understanding. Dictated by: Arron Ochoa M.D. on 09/26/2022 at 15:23 Approved by: Arron Ochoa M.D. on 09/26/2022 at 15:23
--- NOTE | 2022-09-26 12:21 | DI.MG.S_ITS ---
BILATERAL DIGITAL SCREENING MAMMOGRAM 3D/2D WITH CAD: 09/26/2022 CLINICAL: Routine screening. Family history of breast cancer. Comparison is made to exams dated: 07/21/2021 mammogram, 05/04/2020 mammogram - [facility], and 02/25/2019 mammogram - [facility]. Both breasts are heterogeneously dense, which may obscure small masses (category c / 51-75% glandular tissue). Current study was also evaluated with a Computer Aided Detection (CAD) system. No significant masses, calcifications, or other findings are seen in either breast. There has been no significant interval change. IMPRESSION: NEGATIVE There is no mammographic evidence of malignancy. A 1 year screening mammogram is recommended. This exam was interpreted at Station ID: [id number]. NOTE: For mammograms, a report in lay terms will be sent to the patient. Approximately 15% of breast malignancies will not be visualized mammographically. In the management of a palpable breast mass, a negative mammogram must not discourage biopsy of a clinically suspicious lesion. Electronically Signed By: Henry wilson/kanwal:09/26/2022 15:04:34 letter sent: Normal Exam ACR BI-RADS Category 1: Negative [id number]
== END ==
PROVIDERS: PCP Internal Medicine; Referring Provider Internal Medicine; Visit Provider Internal Medicine
DX: Z78.0 Asymptomatic menopausal state (principal); Z12.31 Encounter for screening mammogram for malignant neoplasm of breast; Z80.3 Family history of malignant neoplasm of breast; Z13.820 Encounter for screening for osteoporosis; Z90.710 Acquired absence of both cervix and uterus
CPT/HCPCS: 77063; 77067; 77080

== ENCOUNTER → 2022-10-15 11:29 | Outpatient (CLI) | payer MEDICARE, BC, SELFPAY ==
[2022-10-16 09:01] LABS: Candida species Negative (Negative); Gardnerella vaginalis Positive (Negative); Trichomoas vaginalis Negative (Negative)
== END ==
PROVIDERS: PCP Internal Medicine; Visit Provider Obstetrics & Gynecology
DX: N89.8 Other specified noninflammatory disorders of vagina (principal)
CPT/HCPCS: 87480; 87510; 87660

== ENCOUNTER → 2022-12-04 11:50 | Outpatient (CLI) | payer MEDICARE, BC, SELFPAY ==
[2022-12-04 13:57] LABS: Appearance Urine UA CLEAR; Bilirubin Urine UA NEGATIVE (NEGATIVE); Color Urine UA YELLOW; Glucose Urine UA NEGATIVE (Negative); Ketones Urine UA NEGATIVE (NEGATIVE); Leukocyte Esterase Urine UA 3+ (NEGATIVE); Nitrite Urine UA NEGATIVE (Negative); Occult Blood Urine UA TRACE-INTACT (Negative); Protein Urine UA NEGATIVE (Negative); Urobilinogen Urine UA 0.2 E.U./dL (0.2)
[2022-12-04 14:23] LABS: Bacteria Urine Few (2-10); Culture Indicated Urine Specimen Cultured; RBC Urine 0-1/HPF (0-5/HPF); Squamous Epithelial Cell Urine 5-10 /HPF (0-5/HPF); Transitional Epi Cells Urine 5-10/HPF (0-5/HPF); WBC Urine 30-100/HPF (0-5/HPF); pH Urine UA 6.5 (4.5-8.0)
== END ==
PROVIDERS: PCP Internal Medicine; Referring Provider Obstetrics & Gynecology; Visit Provider Obstetrics & Gynecology
DX: R30.0 Dysuria (principal); R32 Unspecified urinary incontinence
CPT/HCPCS: 81001; 87077; 87086; 87186

== ENCOUNTER → 2023-01-07 10:31 | Outpatient (CLI) | payer MEDICARE, BC, SELFPAY | PROVIDERS: PCP Internal Medicine; Visit Provider Obstetrics & Gynecology | DX: N39.0 Urinary tract infection, site not specified (principal) | CPT/HCPCS: 87077; 87086; 87186 ==

== ENCOUNTER → 2023-01-23 09:48 | Outpatient (CLI) | payer MEDICARE, BC, SELFPAY | PROVIDERS: PCP Internal Medicine; Referring Provider Obstetrics & Gynecology; Visit Provider Obstetrics & Gynecology | DX: N39.0 Urinary tract infection, site not specified (principal) | CPT/HCPCS: 87086 ==

== ENCOUNTER → 2023-12-03 10:22 | Outpatient (CLI) | payer MEDICARE, BC, SELFPAY ==
[2023-12-03 11:53] LABS: Alanine Aminotransferase 22 IU/L (<35); Albumin 4.1 g/dL (3.5-5.0); Albumin Globulin Ratio 1.3 (1.0-2.8); Alkaline Phosphatase 55 U/L (38-126); Aspartate Aminotransferase 28 IU/L (14-36); BUN Creatinine Ratio 28.8 (6-22); Bilirubin Total 0.7 mg/dL (0.2-1.3); Blood Urea Nitrogen 19 mg/dL (7-17); Calcium 9.2 mg/dL (8.4-10.2); Carbon Dioxide 28 mmol/L (22-32); Chloride 102 mmol/L (98-107); Cholesterol 212 mg/dL (140-199); Estimated Glomerular Filt Rate > 60 mL/min (>60); Globulin 3.1 g/dL (1.7-4.1); Glucose 87 mg/dL (80-110); HDL Cholesterol 62 mg/dL (40-60); HEMOLYSIS < 15 (0-50); LDL Cholesterol Calculated 130 mg/dL (<100); Potassium 3.7 mmol/L (3.4-5.1); Sodium 138 mmol/L (137-145); Total Protein 7.2 g/dL (6.3-8.2); Triglycerides 101 mg/dL (35-150)
== END ==
PROVIDERS: PCP Internal Medicine; Referring Provider Internal Medicine; Visit Provider Internal Medicine
DX: R32 Unspecified urinary incontinence (principal); E78.2 Mixed hyperlipidemia; N81.9 Female genital prolapse, unspecified; I87.2 Venous insufficiency (chronic) (peripheral)
CPT/HCPCS: 36415; 80053; 80061; 87086

== ENCOUNTER → 2024-03-09 14:35 | Outpatient (CLI) | payer MEDICARE, BC, SELFPAY ==
--- NOTE | 2024-03-09 | DI.MG.S_ITS ---
BILATERAL DIGITAL SCREENING MAMMOGRAM 3D/2D WITH CAD: 03/09/2024 CLINICAL: Routine screening. Family history of breast cancer. Comparison is made to exams dated: 09/26/2022 mammogram - [facility], 07/21/2021 mammogram, and 05/04/2020 mammogram - [facility]. Both breasts are heterogeneously dense, which may obscure small masses (category c / 51-75% glandular tissue). Current study was also evaluated with a Computer Aided Detection (CAD) system. There are benign calcifications in both breasts. No significant masses, calcifications, or other findings are seen in either breast. There has been no significant interval change. IMPRESSION: BENIGN There is no mammographic evidence of malignancy. A 1 year screening mammogram is recommended. This exam was interpreted at Station ID: [id number]. NOTE: For mammograms, a report in lay terms will be sent to the patient. Approximately 15% of breast malignancies will not be visualized mammographically. In the management of a palpable breast mass, a negative mammogram must not discourage biopsy of a clinically suspicious lesion. Electronically Signed By: Balwinder osorio/kanwal:03/10/2024 09:31:29 letter sent: Normal Exam ACR BI-RADS Category 2: Benign Finding(s) [id number]
== END ==
PROVIDERS: PCP Internal Medicine; Referring Provider Internal Medicine; Visit Provider Internal Medicine
DX: Z12.31 Encounter for screening mammogram for malignant neoplasm of breast (principal); Z80.3 Family history of malignant neoplasm of breast; R92.333 Mammographic heterogeneous density, bilateral breasts
CPT/HCPCS: 77063; 77067